=== PATIENT | male | born 1965 ===

== ENCOUNTER 2018-02-19 06:44 | Emergency (ER) | payer OTHER ==
[2018-02-19 07:23] VITALS: BMI 34.9
[2018-02-19 07:42] VITALS: TEMP 98.1; O2SAT 100
--- NOTE | 2018-02-19 07:58 | ED PDOC ---
Arrival/HPI - General Chief Complaint: Lower Extremity Problem/Injury Time Seen by Provider: 02/19/18 07:15 Historian: Patient - History of Present Illness Narrative History of Present Illness (Text): 02/19/18 07:49 52 year old male, with past medical history of diabetes, presents to the Emergency department complaining of left foot and ankle discomfort since prior to arrival. Patient states he was walking outside when he suddenly developed pain in the L foot while walking through leaves covering ground. Patient reports immediate discomfort and swelling to the area prompting him to present to the ED for medical evaluation. Patient denies taking any pain medication for the discomfort. Patient denies any fall or any other complaints. Patient denies any fevers, chills, headache, dizziness, chest pain, shortness of breath, dyspnea on exertion, cough, abdominal pain, nausea, vomiting, diarrhea, back pain, neck pain, or any other complaints. Denies ankle pain. Time/Duration: Prior to Arrival Symptom Onset: Gradual Symptom Course: Unchanged Quality: Aching Activities at Onset: Light Context: Street Past Medical History - Provider Review Nursing Documentation Reviewed: Yes - Infectious Disease Hx of Infectious Diseases: None - Cardiac Hx Hypertension: Yes - Neurological HX Cerebrovascular Accident: Yes - Endocrine/Metabolic Hx Diabetes Mellitus Type 2: Yes - Musculoskeletal/Rheumatological Hx Falls: No - Psychiatric Hx Psychophysiologic Disorder: No Hx Anxiety: No Hx Bipolar Disorder: No Hx Depression: No Hx Emotional Abuse: No Hx Hallucinations: No Hx Panic Disorder: No Hx Post Traumatic Stress Disorder: No Hx Psychosis: No Hx Physical Abuse: No Hx Schizophrenia: No Hx Sexual Abuse: No Hx Substance Use: No - Surgical History Hx Appendectomy: Yes - Anesthesia Hx Anesthesia: No Hx Anesthesia Reactions: No Hx Malignant Hyperthermia: No Family/Social History - Physician Review Nursing Documentation Reviewed: Yes Family/Social History: Unknown Family HX Smoking Status: Current Some Days Smoker Hx Alcohol Use: No Hx Substance Use: No Allergies/Home Meds Allergies/Adverse Reactions: Allergies No Known Allergies Allergy (Verified 06/18/15 12:43) Home Medications: Home Meds Medication Instructions Recorded Confirmed metFORMIN [glucOPHAGE] 500 mg PO BID 06/18/15 02/19/18 Review of Systems - Physician Review All systems were reviewed & negative as marked: Yes - Review of Systems Cardiovascular: absent: Chest Pain Musculoskeletal: Arthralgias (left foot and ankle pain.) Neurological: absent: Dizziness Physical Exam - Physical Exam Narrative Physical Exam (Text): 02/19/18 07:48 Constitutional: No acute distress. Head: Normocephalic. Atraumatic. Eyes: PERRL. ENT: Moist mucous membranes. Neck: Supple. Cardiovascular: Regular rate. Chest: No tenderness. Respiratory: Clear to auscultation bilaterally. GI: Soft. Nontender. Nondistended. Back: No CVA tenderness. Musculoskeletal: Diffuse edema to left foot. No tenderness to medial and lateral aspect of left foot. No malleolus or anterior bhat tenderness. No open wound or erythema noted. Full range of motion of bilateral extremities. Motor strength 5/5 bilateral extremities. Skin: No rash. Neurologic: Alert, no focal deficit. Vital Signs Reviewed: Yes Vital Signs Temp Pulse Resp BP Pulse Ox 02/19/18 06:44 98.1 F 87 16 155/98 H 100 Temperature: Afebrile Blood Pressure: Normal Pulse: Regular Respiratory Rate: Normal Appearance: Positive for: Well-Appearing, Non-Toxic, Comfortable Pain Distress: None Mental Status: Positive for: Alert and Oriented X 3 Medical Decision Making ED Course and Treatment: 02/19/18 07:48 Impression: 52 year old male presents to the Emergency department complaining of left foot discomfort. Differential Diagnosis included but are not limited to: fracture vs. strain Plan: -- Toradol -- X-ray of left foot -- Reassess and disposition Prior Visits: Notes and results from previous visits were reviewed. Progress Notes: 02/19/18 09:[address] Hathaway, who is aware and will review X-ray imaging. Requests podiatry on consult. 02/19/18 10:10 Podiatry resident placed splint. NWB. Crutches provided. F/u Podiatry clinic. - RAD Interpretation Narrative RAD Interpretations (Text): 02/19/18 09:24 X-ray of left foot reviewed by radiologist, shows: FINDINGS: BONES: Acute fracture base of 3rd metatarsal diaphysis. Old healing fracture of 2nd metatarsal diaphysis with slight displacement and extensive callus but no demonstrated union. No other fracture identified. Small plantar calcaneal spur noted. JOINTS: Normal. SOFT TISSUES: Vascular calcification noted in soft tissues. OTHER FINDINGS: None. IMPRESSION: Probable acute fracture base of 3rd metatarsal diaphysis. Healing fracture base of 2nd metatarsal diaphysis with extensive callus but no demonstrated union. Mild displacement. Telephone Instrument Supervisor: Radiologist - Scribe Statement The provider has reviewed the documentation as recorded by the Scribe Nghia Carrizales. All medical record entries made by the Scribe were at my direction and personally dictated by me. I have reviewed the chart and agree that the record accurately reflects my personal performance of the history, physical exam, medical decision making, and the department course for this patient. I have also personally directed, reviewed, and agree with the discharge instructions and disposition. Disposition/Present on Arrival - Present on Arrival Any Indicators Present on Arrival: No History of DVT/PE: No History of Uncontrolled Diabetes: No Urinary Catheter: No History of Decub. Ulcer: No History Surgical Site Infection Following: None - Disposition Have Diagnosis and Disposition been Completed?: Yes Diagnosis: Metatarsal fracture Disposition: HOME/ ROUTINE Disposition Time: 09:20 Patient Plan: Discharge Condition: STABLE Discharge Instructions (ExitCare): Foot Fracture (DC) Prescriptions: Acetaminophen [Tylenol 325mg tab] 2 tab PO Q4H #30 tab Referrals: Podiatry Clinic [Outside] - Follow up with primary Forms: [employer] ([place])
--- NOTE | 2018-02-19 09:16 | RAD ---
Date of service: 02/19/2018 PROCEDURE: Left Foot Radiographs. HISTORY: foot pain, stepped on uneven ground COMPARISON: None. FINDINGS: BONES: Acute fracture base of 3rd metatarsal diaphysis. Old healing fracture of 2nd metatarsal diaphysis with slight displacement and extensive callus but no demonstrated union. No other fracture identified. Small plantar calcaneal spur noted. JOINTS: Normal. SOFT TISSUES: Vascular calcification noted in soft tissues. OTHER FINDINGS: None. IMPRESSION: Probable acute fracture base of 3rd metatarsal diaphysis. Healing fracture base of 2nd metatarsal diaphysis with extensive callus but no demonstrated union. Mild displacement.
--- NOTE | 2018-02-19 10:16 | CP.PCM.CON ---
History of Present Illness - History of Present Illness History of Present Illness: Consult note for Dr. Hathaway 52 yo male with pmhx of CVA, diabetes, and HLD presents to the ED with pain in his left foot. States that he was walking this morning and missed a step in the leaves and felt like he broke his foot instantly. States that he has some feeling in his feet but does have some neuropathy with his diabetes. States that the pain is right in the middle of his foot and presents more on the top than the bottom. States that the pain does not extend to the toes or up the leg. Describes the pain as stabbing and denies any numbness or tingling in the foot. Denies any N/V/F/C/SOB/CP and has no other acute complaints at this time. PMHx: CVA, diabetes, HLD PSHx: left knee surgery, appendectomy SH: reports smoking occasionally, denies alcohol use All: NKDA Past Patient History - Infectious Disease Hx of Infectious Diseases: None - Past Social History Smoking Status: Current Some Days Smoker - CARDIAC Hx Hypertension: Yes - NEUROLOGICAL HX Cerebrovascular Accident: Yes - ENDOCRINE/METABOLIC Hx Diabetes Mellitus Type 2: Yes - MUSCULOSKELETAL/RHEUMATOLOGICAL Hx Falls: No - PSYCHIATRIC Hx Psychophysiologic Disorder: No Hx Anxiety: No Hx Bipolar Disorder: No Hx Depression: No Hx Emotional Abuse: No Hx Hallucinations: No Hx Panic Symptoms: No Hx Post Traumatic Stress Disorder: No Hx Psychosis: No Hx Physical Abuse: No Hx Schizophrenia: No Hx Sexual Abuse: No Hx Substance Use: No - SURGICAL HISTORY Hx Appendectomy: Yes - ANESTHESIA Hx Anesthesia: No Hx Anesthesia Reactions: No Hx Malignant Hyperthermia: No Meds Home Medications: Home Medication List Medication Instructions Recorded Confirmed Type Acetaminophen [Tylenol 325mg tab] 2 tab PO Q4H #30 tab 02/19/18 Rx Allergies/Adverse Reactions: Allergies Allergy/AdvReac Type Severity Reaction Status Date / Time No Known Allergies Allergy Verified 06/18/15 12:43 Physical Exam - Constitutional Appears: Well, Non-toxic, No Acute Distress - Head Exam Head Exam: ATRAUMATIC, NORMOCEPHALIC - Extremities Exam Additional comments: LLE focused: vasc: DP and PT pulses palpable; cap refill <3 seconds to all digits; temp gradient warm to warm from proximal to distal; edema noted at left dorsal midfoot derm: no open lesions or wounds present; erythema and mild ecchymosis present at the dorsum of the left foot; no cellulitis or signs of infection present ortho: pain on palpation at the left midfoot dorsally>plantarly; piano thomas test not performed due to guarding; no pain on ROM of the first MPJ, pain on ROM at the ankle and guarding appreciated neuro: diminished protective and gross sensation - Neurological Exam Neurological exam: Alert, Oriented x3 - Psychiatric Exam Psychiatric exam: Normal Affect, Normal Mood Results - Vital Signs Recent Vital Signs: Last Vital Signs Temp 98.1 F 02/19/18 07:15 Pulse 76 02/19/18 08:30 Resp 18 02/19/18 08:30 BP 152/85 H 02/19/18 08:30 Pulse Ox 100 02/19/18 08:30 Assessment & Plan - Assessment and Plan (Free Text) Assessment: 52 yo male with pmhx of CVA, diabetes, and HLD seen and evaluated in the ED for left second and third metatarsal base fractures Plan: Patient seen and evaluated Discussed in detail with Dr. Hathaway Vitals and labs stable X-rays ordered - nondisplaced third metatarsal base fracture noted; second metatarsal fracture mildly displaced medially and dorsally, evidence of some callus formation, possibly old fracture with nonunion Patient placed in posterior splint and instructed to keep dry and intact Patient to be nonweightbearing to left extremity and use crutches for assistance in ambulation RICE protocol explained Patient to take extra strength tylenol to help with pain and inflammation Follow up in podiatry clinic at [facility] in 1 week Patient stable for discharge from podiatry standpoint Thank you for the consult - Date & Time Date: 02/19/18 Time: 10:22
[2018-02-19 11:06] VITALS: BP 150/84; PULSE 77; RESP 16
== END 2018-02-19 10:45 | disposition home or self-care (01) ==
LOC: ED 06:44
DX: S92.332A Displaced fracture of third metatarsal bone, left foot, initial encounter for closed fracture (principal); X58.XXXA Exposure to other specified factors, initial encounter; I10 Essential (primary) hypertension; E78.5 Hyperlipidemia, unspecified; Z86.73 Personal history of transient ischemic attack (TIA), and cerebral infarction without residual deficits; E11.9 Type 2 diabetes mellitus without complications
CPT/HCPCS: 29515; 73630; 96372; 99285; J1885